=== PATIENT | female | born 1995 | race Two or more races ===

== ENCOUNTER 2019-07-08 10:55 | Emergency (ER) | payer OTHER ==
[~2019-07-08] VITALS: Ht 157.5 cm; Wt 61.1 kg
--- NOTE | 2019-07-08 11:09 | NUR ---
ABD PAIN "CRAMPS" TOOK THE PLAN B PILL A MONTH AGO AND HAVING INTERMITTENT BLEEDING AND CONSTIPATION. PATIENT CALM NOT IN ANY DISTRESS AWAITING MD [place].
[2019-07-08 12:09] LABS: MEAN CORPUSCULAR HEMOGLOBIN 28.9 pg (27.0-34.8); MEAN CORPUSCULAR HGB CONC 32.8 g/dL (32.4-35.8); MEAN CORPUSCULAR VOLUME 88.1 fL (80-100); MEAN PLATELET VOLUME 7.5 fL (7.4-10.4); PLATELET COUNT 769 x10^3/uL (130-400); RED BLOOD COUNT 3.49 x10^6/uL (3.82-5.3); RED CELL DISTRIBUTION WIDTH 15.3 % (9.6-15.2)
--- NOTE | 2019-07-08 12:14 | NUR ---
BREAK RN: PT NOT IN ROOM
[2019-07-08 12:16] LABS: ALBUMIN 2.4 g/dL (3.4-5.0); ANION GAP 8 mmol/L (5-15); CALCIUM 8.6 mg/dL (8.5-10.1); CHLORIDE 108 mmol/L (98-107); CREATININE 1.02 mg/dL (0.55-1.02)
[2019-07-08 12:19] LABS: MICROSCOPIC INDICATED
[2019-07-08 12:20] LABS: MD YES
[2019-07-08 12:21] LABS: BAND#(MANUAL) 2.65 x10^3/uL; BANDS%(MANUAL) 10 % (0-7); LYMPH#(MANUAL) 1.86 x10^3/uL (1-3.4); LYMPHS% (MANUAL) 7 % (22-44); MONOS% (MANUAL) 3 % (2-9); SEGS% (MANUAL) 80 % (42-75)
[2019-07-08 12:22] LABS: <PLATELET ESTIMATE> INCREASED; <PLT MORPHOLOGY> NORMAL PLT MORPH; <RBC MORPHOLOGY> NORMAL
[2019-07-08] MEDS ORDERED: CEFTRIAXONE PMX 1GM/50ML 50 ML IV ONE (12:30)
[2019-07-08] MEDS ORDERED: ONDANSETRON 2MG/ML, 2ML IVPush ONE (12:30)
[2019-07-08] MEDS ORDERED: SODIUM CHLORIDE 0.9% 1,000ML IVBOLUS ONE (12:30)
--- NOTE | 2019-07-08 12:34 | NUR ---
REPORT TO STELLA MADDEN
[2019-07-08] MEDS ORDERED: CEFTRIAXONE PMX 1GM/50ML 50 ML ONE (12:45)
[2019-07-08] MEDS ORDERED: ONDANSETRON 2MG/ML, 2ML ONE (12:45)
[2019-07-08] MEDS ORDERED: KETOROLAC 30 MG/1 ML IVPush ONE (13:30)
[2019-07-08] MEDS ORDERED: KETOROLAC 30 MG/1 ML ONE (13:42)
[2019-07-08 14:40] VITALS: BP 120/52
== END 2019-07-08 14:43 | disposition home or self-care (01) ==
LOC: ED 11:55
DX: N83.202 Unspecified ovarian cyst, left side (principal); A41.9 Sepsis, unspecified organism; K59.00 Constipation, unspecified
CPT/HCPCS: 36415; 76830; 80048; 81001; 82040; 83605; 84145; 84702; 85025; 86901; 87040; 87086; 96365; 96375; 99284; J0696; J2405; J7030